=== PATIENT | male | born 1985 | race Hispanic/Latino ===

== ENCOUNTER 2023-12-12 04:01 | Emergency (ER) | payer OTHER ==
[~2023-12-12] VITALS: Ht 182.9 cm; Wt 131.5 kg
[2023-12-12] MEDS: KETOROLAC 15MG/ML VIAL (15MG/ML) IM STA (04:21)
[2023-12-12] MEDS ORDERED: KETO10 PO (04:54)
[2023-12-12 05:03] VITALS: BP 147/78; PULSE 81; RESP 20; O2SAT 98
== END 2023-12-12 05:05 | disposition home or self-care (01) ==
LOC: EDH 04:01
DX: S42.302A Unspecified fracture of shaft of humerus, left arm, initial encounter for closed fracture (principal); E11.9 Type 2 diabetes mellitus without complications; W01.0XXA Fall on same level from slipping, tripping and stumbling without subsequent striking against object, initial encounter; Y93.89 Activity, other specified; Y92.89 Other specified places as the place of occurrence of the external cause; Y99.8 Other external cause status
CPT/HCPCS: 99284; 73070; 73060; 73030; 96372; J1885